=== PATIENT | female | born 1955 | race Hispanic/Latino ===

== ENCOUNTER 2017-12-17 15:15 | Observation (INO) | payer OTHER, SELFPAY ==
--- NOTE | 2017-12-17 16:17 | RAD REPORT ---
EXAM DESCRIPTION: Shani Single View12/17/2017 4:08 pm CLINICAL HISTORY: Chest pain COMPARISON: 2008 FINDINGS: The lungs appear clear of acute infiltrate. The heart is normal size IMPRESSION: No acute abnormalities displayed
[2017-12-17] MEDS ORDERED: ACETAMINOPHEN 500 MG TAB ONE (16:50)
[2017-12-17 16:52] LABS: Absolute Lymphocytes (CBC) 1.9 K/uL (0.7-4.9); Absolute Monocytes 0.5 K/uL (0.1-1.3); Absolute Neutrophil 4.3 K/uL (1.8-8.0); Basophils % 0.6 % (0-1.3); Eosinophils % 0.7 % (0-4.4); Hematocrit 39.2 % (36.0-45.0); Lymphocytes % 27.7 % (15.3-44.8); MCH 32.1 pg (27.0-35.0); MCV 90.8 fL (80-100); MPV 10.1 fL (7.6-11.3); Monocytes % 7.1 % (3.3-12.3); Protime INR 1.03; RBC Red Blood Cell Count 4.31 M/uL (3.86-4.86)
[2017-12-17 17:08] LABS: ALT/SGPT 44 U/L (12-78); AST/SGOT 33 U/L (15-37); Alkaline Phosphatase 66 U/L (45-117); BUN Blood Urea Nitrogen 15 mg/dL (7-18); Bicarbonate 26 mmol/L (21-32); Bilirubin Direct 0.1 mg/dL (0-0.2); Bilirubin Total 0.5 mg/dL (0.2-1.0); Glucose Level 98 mg/dL (74-106); Magnesium 2.1 mg/dL (1.8-2.4); NT PRO-BNP 117 pg/mL (<125); Potassium 3.6 mmol/L (3.5-5.1); Protein, Total 7.5 g/dL (6.4-8.2); Sodium Level 138 mmol/L (136-145); Troponin (Emerg Dept Use Only) < 0.02 ng/mL (0.0-0.045)
--- NOTE | 2017-12-17 17:43 | ER ---
Nurse's Notes [facility] Name: Sun Smith Age: 62 yrs Sex: Female : 1955 Arrival Date: 12/17/2017 Time: 15:17 Bed 14 Private MD: Out, [facility] Diagnosis: Chest pain, unspecified Presentation: 12/17 15:19 Presenting complaint: Patient states: dizziness, shaking and difficulty breathing that ss began 2 weeks ago and has gotten worse over the past 3 days. Transition of care: patient was not received from another setting of care. Onset of symptoms was January 03, 2018. Risk Assessment: Do you want to hurt yourself or someone else? Patient reports no desire to harm self or others. Initial Sepsis Screen: Does the patient meet any 2 criteria? No. Patient's initial sepsis screen is negative. Does the patient have a suspected source of infection? No. Patient's initial sepsis screen is negative. Care prior to arrival: None. 15:19 Method Of Arrival: Ambulatory ss 15:19 Acuity: ROBERT 3 ss Historical: - Allergies: 15:36 No Known Allergies; ss - Home Meds: 15:20 None [Active]; rb1 - PMHx: 15:20 High Cholesterol; rb1 - PSHx: 15:36 partial hysterectomy; ss - Immunization history:: Adult Immunizations up to date. - Social history:: Smoking status: Patient/guardian denies using tobacco. - Ebola Screening: : Patient denies exposure to infectious person Patient denies travel to an Ebola-affected area in the 21 days before illness onset. Screenin:20 Abuse screen: Denies threats or abuse. Nutritional screening: No deficits noted. rb1 Tuberculosis screening: No symptoms or risk factors identified. Fall Risk None identified. Assessment: 15:20 General: Appears in no apparent distress. comfortable, Behavior is calm, cooperative, rb1 Reports Denies fever. Pain: Complains of pain in chest and back of head Pain does not radiate. Pain currently is 4 out of 10 on a pain scale. Pain began 2-3 days ago. Neuro: Level of Consciousness is awake, alert, obeys commands, Oriented to person, place, time, situation. Cardiovascular: Capillary refill < 3 seconds is brisk in bilateral fingers. Respiratory: Airway is patent Respiratory effort is even, unlabored, Respiratory pattern is regular, symmetrical, Pt. stated, "I have pressure in my chest when I take a deep breath.". GI: Reports nausea. : No signs and/or symptoms were reported regarding the genitourinary system. Derm: Skin is pink, warm \\T\\ dry. 15:20 Neuro: Reports dizziness, Feels shaky. Respiratory: Reports shortness of breath pain rb1 with respiration. 16:20 Reassessment: Patient appears in no apparent distress at this time. No changes from rb1 previously documented assessment. 17:19 Reassessment: Patient appears in no apparent distress at this time. Patient and/or rb1 family updated on plan of care and expected duration. Pain level reassessed. Patient is alert, oriented x 3, equal unlabored respirations, skin warm/dry/pink. 18:16 Reassessment: Patient appears in no apparent distress at this time. Pain is 3/10. rb1 19:19 Reassessment: Patient appears in no apparent distress at this time. Patient and/or ak1 family updated on plan of care and expected duration. Pain level reassessed. Patient is alert, oriented x 3, equal unlabored respirations, skin warm/dry/pink. pt and family informed of admission status and room assignment. will continue to monitor. Patient denies pain at this time. Patient states feeling better. Patient states symptoms have improved. Vital Signs: 15:36 BP 166 / 83; Pulse 83; Resp 16; Pulse Ox 97% on R/A; Weight 76.2 kg; Height 5 ft. 7 in. ss (170.18 cm); Pain 4/10; 16:30 BP 157 / 81; Pulse 68; Resp 14; Pulse Ox 98% on R/A; dh3 17:16 BP 147 / 77; Pulse 64; Resp 16; Pulse Ox 99% on R/A; dh3 18:00 BP 153 / 74; Pulse 64; Resp 18; Pulse Ox 98% on R/A; rb1 19:17 BP 158 / 77; Pulse 65; Resp 14; Temp 98.6; Pulse Ox 100% on R/A; Pain 2/10; ak1 15:36 Body Mass Index 26.31 (76.20 kg, 170.18 cm) ED Course: 15:17 Patient arrived in ED. sb2 15:17 Out, of [facility] is Private Physician. sb2 15:20 Patient has correct armband on for positive identification. wire web worker on. Pulse rb1 ox on. NIBP on. Warm blanket given. 15:20 Patient maintains SpO2 saturation greater than 95% on room air. rb1 15:28 Magdi Villagomez PA is PHCP. jr8 15:28 Denver Dangelo MD is Attending Physician. jr8 15:28 Everton Collins MD is Attending Physician. jr8 15:35 Triage completed. ss 15:35 Inserted saline lock: 22 gauge in right antecubital area, using aseptic technique. rb1 Blood collected. 15:36 Arm band placed on right wrist. ss 15:37 Nicci Rodriguez, RN is Primary Nurse. [facility] 15:48 EKG done, by mathematics technician. reviewed by Magdi GUILLORY. 3 16:08 XRAY Chest (1 view) In Process Unspecified. EDMS 17:29 Urine collected: clean catch specimen, clear. 3 17:42 Alonzo Cat MD is Hospitalizing Provider. jr8 19:18 No provider procedures requiring assistance completed. Patient admitted, IV remains in ak1 place. Administered Medications: 16:49 Drug: Tylenol 1000 mg Route: PO; rb1 18:17 Follow up: Response: No adverse reaction; Pain is decreased rb1 Outcome: 17:42 Decision to Hospitalize by Provider. jr8 19:18 Condition: good ak1 19:18 Instructed on the need for admit. 19:54 Admitted to Tele accompanied by tech, via wheelchair, room 219, with chart, Report ak1 called to Britney Salamanca RN 20:02 Patient left the ED. ak1 Signatures: Dispatcher [employer] EDCO Dawna Roman RN RN Magdi Villagomez PA PA jr8 Lucy Junior RN RN ak1 Nicci Rodriguez, RN RN rb1 Alisa Martinez 3 Alta Small 2 Gertrudis Zabala 3
--- NOTE | 2017-12-17 17:43 | EDPHYS ---
Physician Documentation [facility] Name: Sun Smith Age: 62 yrs Sex: Female : 1955 Arrival Date: 12/17/2017 Time: 15:17 Bed 14 Private MD: Out, [facility] ED Physician Everton Collins HPI: 12/17 15:43 This 62 yrs old Female presents to ER via Ambulatory with complaints of Chest jr8 Pain > 30 y/o. 15:43 The patient or guardian reports chest pain that is located primarily in the substernal jr8 area. Onset: acutely, 4 day(s) ago, and became worse and became persistent. The pain radiates to the left arm. Associated signs and symptoms: The patient has no apparent associated signs or symptoms. The chest pain is described as a pressure. Duration: The patient or guardian reports multiple episodes. Modifying factors: The symptoms are alleviated by nothing. the symptoms are aggravated by nothing. Severity of pain: At its worst the pain was moderate in the emergency department the pain has improved. The patient has not experienced similar symptoms in the past. The patient has not recently seen a physician. Historical: - Allergies: 15:36 No Known Allergies; ss - Home Meds: 15:20 None [Active]; rb1 - PMHx: 15:20 High Cholesterol; rb1 - PSHx: 15:36 partial hysterectomy; ss - Immunization history:: Adult Immunizations up to date. - Social history:: Smoking status: Patient/guardian denies using tobacco. - Ebola Screening: : Patient denies exposure to infectious person Patient denies travel to an Ebola-affected area in the 21 days before illness onset. ROS: 15:43 Eyes: Negative for injury, pain, redness, and discharge, ENT: Negative for injury, jr8 pain, and discharge, Neck: Negative for injury, pain, and swelling, Respiratory: Negative for shortness of breath, cough, wheezing, and pleuritic chest pain, Abdomen/GI: Negative for abdominal pain, nausea, vomiting, diarrhea, and constipation, Back: Negative for injury and pain, MS/Extremity: Negative for injury and deformity, Skin: Negative for injury, rash, and discoloration. 15:43 Neuro: Negative for headache, weakness, tingling, and seizure. Positive for numbness to arm and lip 15:43 Cardiovascular: Positive for chest pain, Negative for edema, orthopnea, palpitations, paroxysmal nocturnal dyspnea. Exam: 15:43 Eyes: Pupils equal round and reactive to light, extra-ocular motions intact. Lids and jr8 lashes normal. Conjunctiva and sclera are non-icteric and not injected. Cornea within normal limits. Periorbital areas with no swelling, redness, or edema. ENT: Nares patent. No nasal discharge, no septal abnormalities noted. Tympanic membranes are normal and external auditory canals are clear. Oropharynx with no redness, swelling, or masses, exudates, or evidence of obstruction, uvula midline. Mucous membranes moist. Neck: Trachea midline, no thyromegaly or masses palpated, and no cervical lymphadenopathy. Supple, full range of motion without nuchal rigidity, or vertebral point tenderness. No Meningismus. Cardiovascular: Regular rate and rhythm with a normal S1 and S2. No gallops, murmurs, or rubs. Normal PMI, no JVD. No pulse deficits. Respiratory: Lungs have equal breath sounds bilaterally, clear to auscultation and percussion. No rales, rhonchi or wheezes noted. No increased work of breathing, no retractions or nasal flaring. Abdomen/GI: Soft, non-tender, with normal bowel sounds. No distension or tympany. No guarding or rebound. No evidence of tenderness throughout. Back: No spinal tenderness. No costovertebral tenderness. Full range of motion. Skin: Warm, dry with normal turgor. Normal color with no rashes, no lesions, and no evidence of cellulitis. MS/ Extremity: Pulses equal, no cyanosis. Neurovascular intact. Full, normal range of motion. Neuro: Awake and alert, GCS 15, oriented to person, place, time, and situation. Cranial nerves II-XII grossly intact. Motor strength 5/5 in all extremities. Sensory grossly intact. Cerebellar exam normal. Normal gait. Vital Signs: 15:36 BP 166 / 83; Pulse 83; Resp 16; Pulse Ox 97% on R/A; Weight 76.2 kg; Height 5 ft. 7 in. ss (170.18 cm); Pain 4/10; 16:30 BP 157 / 81; Pulse 68; Resp 14; Pulse Ox 98% on R/A; dh3 17:16 BP 147 / 77; Pulse 64; Resp 16; Pulse Ox 99% on R/A; dh3 18:00 BP 153 / 74; Pulse 64; Resp 18; Pulse Ox 98% on R/A; rb1 19:17 BP 158 / 77; Pulse 65; Resp 14; Temp 98.6; Pulse Ox 100% on R/A; Pain 2/10; ak1 15:36 Body Mass Index 26.31 (76.20 kg, 170.18 cm) ss MDM: 15:28 Patient medically screened. jr8 17:41 HEART Score: History: Moderately Suspicious (1), ECG: Normal (0), Age: > 45 and < 65 jr8 years (1), Risk Factors: 1 or 2 risk factors (1), [Hypercholesterolemia] [Hypertension] Troponin: < or = 1 x Normal Limit (0). The patient was not given aspirin in the Emergency Department. Patient reports taking aspirin within the past 24 hours. Data reviewed: vital signs, nurses notes, lab test result(s), EKG, radiologic studies, plain films, and as a result, I will discharge patient. Data interpreted: Pulse oximetry: on room air is 99 %. Interpretation: normal. Counseling: I had a detailed discussion with the patient and/or guardian regarding: the historical points, exam findings, and any diagnostic results supporting the discharge/admit diagnosis, lab results, radiology results, the need for further work-up and treatment in the hospital. 12/17 15:35 Order name: Basic Metabolic Panel; Complete Time: 17:12/17 15:35 Order name: CBC with Diff; Complete Time: 17:12/17 15:35 Order name: LFT's; Complete Time: 17:12/17 15:35 Order name: Magnesium; Complete Time: 17:12/17 15:35 Order name: NT PRO-BNP; Complete Time: 17:12/17 15:35 Order name: PT-INR; Complete Time: 17:12/17 15:35 Order name: Troponin (emerg Dept Use Only); Complete Time: 17:12/17 15:35 Order name: XRAY Chest (1 view); Complete Time: 16:38 12/17 15:35 Order name: EKG; Complete Time: 15:35 12/17 17:34 Order name: Urine Dipstick--Ancillary (enter results); Complete Time: 19:21 eb 12/17 18:14 Order name: Basic Metabolic Panel [facility] 12/17 18:14 Order name: Echo with Doppler [facility] 12/17 18:14 Order name: Troponin I [facility] 12/17 15:35 Order name: Cardiac monitoring; Complete Time: 16:40 [facility] 12/17 15:35 Order name: EKG - Nurse/Tech; Complete Time: 16:48 [facility] 12/17 15:35 Order name: IV Saline Lock; Complete Time: 16:40 [facility] 12/17 15:35 Order name: Labs collected and sent; Complete Time: 16:40 [facility] 12/17 15:35 Order name: O2 Per Protocol; Complete Time: 16:40 [facility] 12/17 15:35 Order name: O2 Sat Monitoring; Complete Time: 16:40 [facility] 12/17 15:35 Order name: Urine Dipstick-Ancillary (obtain specimen); Complete Time: 17:30 [facility] 12/17 18:14 Order name: CONS Physician Consult [facility] 12/17 18:14 Order name: Heart Healthy [facility] Administered Medications: 16:49 Drug: Tylenol 1000 mg Route: PO; rb1 18:17 Follow up: Response: No adverse reaction; Pain is decreased rb1 Disposition: 12/17/17 17:42 Hospitalization ordered by Alonzo Cat for Observation. Preliminary diagnosis is Chest pain, unspecified. - Bed requested for Telemetry/MedSurg (observation). - Status is Observation. ak1 - Condition is Stable. - Problem is new. - Symptoms have improved. UTI on Admission? No Addendum: 12/22/2017 07:04 Co-signature as Attending Physician, Everton Collins MD. r n Signatures: Dispatcher [employer] [facility] Debra Cheek RN Everton Chowdhury MD MD rn Smirch, Shelby RN RN Magdi Burnette PA PA jr8 Lucy Junior RN RN ak1 Nicci Rodriguez RN RN rb1 Corrections: (The following items were deleted from the chart) 12/17 18:52 17:42 Hospitalization Ordered by Alonzo Cat MD for Observation. Preliminary diagnosis dw is Chest pain, unspecified. Bed requested for Telemetry/MedSurg (observation). Status is Observation. Condition is Stable. Problem is new. Symptoms have improved. UTI on Admission? No. jr8 20:02 18:52 12/17/2017 17:42 Hospitalization Ordered by Alonzo Cat MD for Observation. ak1 Preliminary diagnosis is Chest pain, unspecified. Bed requested for Telemetry/MedSurg (observation). Status is Observation. Condition is Stable. Problem is new. Symptoms have improved. UTI on Admission? No. dw
[2017-12-17] MEDS ORDERED: MORPHINE 4 MG/ML SYR IV PRN (18:10)
[2017-12-17] MEDS ORDERED: ALPRAZOLAM 0.25 MG TABLET PO PRN (18:10)
[2017-12-17] MEDS ORDERED: ZOLPIDEM TARTRATE 5 MG TABLET PO PRN (18:10)
[2017-12-17] MEDS ORDERED: ACETAMINOPHEN 500 MG TAB PO PRN (18:10)
[2017-12-17] MEDS ORDERED: NITROGLYCERIN 0.4 MG/TAB SL PRN (18:23)
[2017-12-17 19:10] LABS: Urine Blood NEGATIVE (NEG); Urine Glucose NEGATIVE (NEG); Urine Protein NEGATIVE (NEG)
[2017-12-17] MEDS ORDERED: ATORVASTATIN 40 MG TAB PO SCH (21:00)
[2017-12-17] MEDS: METOPROLOL TAR 50 MG TAB PO SCH (21:38)
[2017-12-17] MEDS: ENOXAPARIN 40 MG/0.4 ML SQ SCH (21:38)
[2017-12-17 21:56] VITALS: BMI 26.2
--- NOTE | 2017-12-18 05:18 | P.HP ---
Certification for Inpatient Patient admitted to: Observation With expected LOS: <2 Midnights Patient will require the following post-hospital care: None Practitioner: I am a practitioner with admitting privileges, knowledge of patient current condition, hospital course, and medical plan of care. Services: Services provided to patient in accordance with Admission requirements found in Title 42 Section 412.3 of the Code of Federal Regulations Patient History Date of Service: 12/17/17 Reason for admission: Chest pain rule out acute coronary syndrome History of Present Illness: Patient is a 62-year-old female came to the hospital with chest discomfort. Pain was mainly in the sternal region. It radiated down her left arm and up her neck. Patient also had a headache with some paresthesias to the left side of her face. She took an aspirin which was 81 mg. She did not get it her symptoms so she came into the emergency room for brief denies any prior history of cardiac problems. She does have a history of hypertension but denies diabetes. She does take a prescription for cholesterol meds as well. She does not smoke. She does have a family history of cardiac disease in her mother and father. She states that her mother in her 60s with cardiac issues. She has not had any cardiac workup in the past. She will be admitted to the hospital for further workup. Probably get a echocardiogram and a stress test along with a CT of the head to evaluate the headache with her paresthesias to the left side of her face and arm. Allergies No Known Allergies Allergy (Verified 12/17/17 21:42) Home Medications: Calcium Carb/Mag Ox/Zinc Sulf [Fughcvx-Utxkvpdex-Xugs Tablet] 1 tab PO DAILY Cholecalciferol (Vitamin D3) [Vitamin D3] 1 tab PO DAILY 12/17/17 Multivitamin [Multiple Vitamins] 1 tab PO DAILY 12/17/17 - Past Medical/Surgical History Has patient received pneumonia vaccine in the past: Yes Diabetic: No -: High Cholesterol -: HTN -: Hysterectomy - Family History Father Medical History: Liver disease Mother Medical History: Heart disease, Hypertension, Diabetes Sister Medical History: Diabetes Brother Medical History: Hypertension - Social History Smoking Status: Never smoker Alcohol use: No CD- Drugs: No Caffeine use: Yes Place of Residence: Home Review of Systems 10-point ROS is otherwise unremarkable Physical Examination - Vital Signs Temperature: 97.6 F Blood Pressure: 159/71 Pulse: 61 Respirations: 18 Pulse Ox (%): 98 - Physical Exam General: Alert, In no apparent distress, Oriented x3 HEENT: Atraumatic, PERRLA, Mucous membr. moist/pink, EOMI, Sclerae nonicteric Neck: Supple, 2+ carotid pulse no bruit, No LAD, Without JVD or thyroid abnormality Respiratory: Clear to auscultation bilaterally, Normal air movement Cardiovascular: Regular rate/rhythm, Normal S1 S2, No murmurs Gastrointestinal: Normal bowel sounds, Soft and benign, Non-distended, No tenderness, No rebound, No guarding Musculoskeletal: No clubbing, No swelling, No tenderness Integumentary: No rashes Neurological: Normal gait, Normal speech, Normal strength at 5/5 x4 extr, Normal tone, Sensation intact, Cranial nerves 3-12 intact, Normal affect Lymphatics: No axilla or inguinal lymphadenopathy - Studies Laboratory Data (last 24 hrs) 12/17/17 16:35: PT 12.1, INR 1.03 12/17/17 16:35: WBC 6.7, Hgb 13.9, Hct 39.2, Plt Count 175 12/17/17 16:35: Sodium 138, Potassium 3.6, BUN 15, Creatinine 0.70, Glucose 98, Magnesium 2.1, Total Bilirubin 0.5, AST 33, ALT 44, Alkaline Phosphatase 66 Assessment & Plan - Plan Assessment: 1. Chest pain rule out acute coronary syndrome 2. Headache with paresthesias to the left side of her body 3. History of hypertension and dyslipidemia 4. Family history of cardiac disease in the mother and father Plan: 1. Serial troponins and EKG 2. Cardiology consultation 3. Echocardiogram and stress test in the morning 4. Anti-platelet therapy, anti coagulation, beta-yury, statin, and O2 as needed 5. IV morphine for pain 6. Nitro p.r.n. 7. CT of the brain for further evaluation of her paresthesias and headache 8. Lipid profile in the morning 9. GI and DVT prophylaxis Discharge Plan: Home Plan to discharge in: 24 Hours - Advance Directives Does patient have a Living Will: Yes Does patient have a Durable POA for Healthcare: No - Code Status/Comfort Care Code Status Assessed: Yes Code Status: Full Code Critical Care: No Time Spent Managing PTS Care (In Minutes): 50
[2017-12-18 05:30] LABS: Absolute Lymphocytes (CBC) 3.6 K/uL (0.7-4.9); Absolute Monocytes 0.5 K/uL (0.1-1.3); Basophils % 0.9 % (0-1.3); Eosinophils % 1.7 % (0-4.4); MCH 32.3 pg (27.0-35.0); MCV 91.4 fL (80-100); MPV 9.8 fL (7.6-11.3); Monocytes % 7.5 % (3.3-12.3); RBC Red Blood Cell Count 4.26 M/uL (3.86-4.86)
[2017-12-18 08:51] VITALS: BP 133/71; TEMP 98
[2017-12-18] MEDS ORDERED: LISINOPRIL 10 MG TAB PO SCH (09:00)
[2017-12-18] MEDS ORDERED: ASPIRIN EC 81 MG TAB PO SCH (09:00)
[2017-12-18] MEDS: METOPROLOL TAR 50 MG TAB PO SCH (09:00)
[2017-12-18] MEDS: ENOXAPARIN 40 MG/0.4 ML SQ SCH (09:20)
[2017-12-18] MEDS ORDERED: REGADENOSON 0.4 MG/5 ML SYR IV ONE (10:47)
[2017-12-18 10:49] VITALS: O2SAT 99
[2017-12-18 11:19] LABS: BUN Blood Urea Nitrogen 12 mg/dL (7-18); Bicarbonate 28 mmol/L (21-32); Glucose Level 94 mg/dL (74-106); HDL Cholesterol 46 mg/dL (40-60); LDL Cholesterol, Calculated 167 (<130); Potassium 4.3 mmol/L (3.5-5.1); Sodium Level 142 mmol/L (136-145)
--- NOTE | 2017-12-18 12:41 | RAD REPORT ---
EXAM DESCRIPTION: CT - Head Brain Wo Cont - 12/18/2017 12:27 pm CLINICAL HISTORY: Headache and numbness COMPARISON: 2008 TECHNIQUE: Computed axial tomography of the head was obtained. IV contrast was not requested. All CT scans are performed using dose optimization technique as appropriate and may include automated exposure control or mA/KV adjustment according to patient size. FINDINGS: An intracranial bleed is not seen . The ventricles are normal in caliber. No extra-axial fluid collection is noted. Small right thalamic calcification is unchanged Fluid within the sinuses/ mastoids is not seen. IMPRESSION: No acute intracranial abnormality is seen. If patient's symptoms persist MRI of the bra in would be recommended.
--- NOTE | 2017-12-18 13:11 | RAD REPORT ---
EXAM DESCRIPTION: NM - Rest Stress Cardiac Imaging - 12/18/2017 12:26 pm CLINICAL HISTORY: Chest pain COMPARISON: None. TECHNIQUE: The patient was administered 10.9 mCi of Tc 99m Sestamibi prior to resting SPECT imaging of the heart. The patient was then administered 30.4 mCi of Tc 99m Sestamibi following exercise or ph armacologic stress. Multiplanar SPECT images were reviewed. FINDINGS: The end diastolic volume is 87 ml, the end systolic volume is 32 ml, and the ejection frac tion is 63 %. No stress-induced ischemic changes are identifiable. There is minimal diminished activity anterior wa ll near the apex as well is in the inferior wall near the base. These areas are not clearly different between rest and stress imaging. Diaphragm and breast attenuation artifacts are most likely the etio logy. Scarring is felt to be low in likelihood. IMPRESSION: No stress-induced ischemia change. Anterior apical and inferior wall base diminished activity is believed to be attenuation artifact rat her than scarring. Ventricular volumes and ejection fraction are well within normal limits.
--- NOTE | 2017-12-19 12:17 | EKG ---
Test Date: 2017-12-17 Test Time: 15:38:00 Roll Edge Machine Operator: YAIMA MEASUREMENT RESULTS: Intervals: Rate: 75 CO: 174 QRSD: 98 QT: 390 QTc: 435 [place]: P: 55 CO: 174 QRS: 31 T: 39 INTERPRETIVE STATEMENTS: Normal sinus rhythm Normal ECG Compared to ECG 10/06/2007 14:22:31 Sinus bradycardia no longer present Electronically Signed On 12-19-17 12:08:40 CDT by Harlan Graham
--- NOTE | 2017-12-19 13:43 | CON ---
Date of Consultation: 12/18/[address] Cat's service on 12/17/2017, I saw the patient on 12/18/2017. Reason For Consultation: Chest pain. History Of Present Illness: Ms. Smith is a 62-year-old female who has really no significant cardiac history. She has a past medical history of dyslipidemia. Does not take any medications. She does n ot have any allergies. She came in with 4 days' worth of chest pain radiating to her arm, that is sh dae. No nausea, vomiting, diaphoresis, PND, orthopnea, pedal edema, palpitations, or syncope. She w as hypertensive at 170/83 under significant amount of stress. Enzymes were negative. Past Medical History: Positive for dyslipidemia. Medications: None. Review of Systems: Negative. Social History: Negative for tobacco. Family History: Negative for heart disease. Medications: None. Physical Examination: Vital Signs: Stable. Afebrile. HEENT: Negative. Neck: Supple with no bruit, lymphadenopathy, or JVD. Chest: Clear to auscultation and percussion. Cardiac: Revealed a regular rhythm and rate without any murmurs, gallops, or rubs. Abdomen: Benign. Extremities: Revealed no clubbing, cyanosis, or edema. Diagnostic Data: All normal. Impression And Plan: Atypical chest pain in that it lasted for 4 days, nonexertional. No associated symptoms. Normal EKG and enzymes. The patient has hypertension of 170/83, which needs to be treate d. Dyslipidemia. I recommended an echocardiogram and a stress test prior to making any final decisi ons. KLAUDIA/TRISTA Voice ID: [id number] Report ID: [id number]
--- NOTE | 2017-12-19 16:13 | DS ---
Date of Discharge: 12/18/2017 Admitting Diagnoses: 1.Chest pain. 2.Headache with paresthesia. 3.History of hypertension, not on any medications, diet controlled. 4.Dyslipidemia, diet controlled. Discharge Diagnoses: 1.Chest pain. Acute coronary syndrome ruled out. 2.Dyslipidemia. Continue statin. 3.Essential hypertension, on low-dose MARIA G inhibitor. 4.Overweight, body mass index 26. 5.Headache with paresthesias, resolved. Hospital Course: The patient is a 62-year-old female who has hypertension, hyperlipidemia, which is diet controlled. No previous history of heart disease. Had a stress test 7 years ago, which was neg ative. The patient reports some recent stress in her life, which has been ongoing and has intensifie d recently, reports some headache, paresthesias in the left side of her face as well as some chest ti ghtness and pain. The patient was admitted to the hospital for further workup. ACS was ruled out. Her cardiac enzymes were negative x3. However, her lipid panel did show elevated triglycerides, chol esterol and LDL. HDL was normal. She was counseled on using statin. She understands the side effec ts including myopathy, liver dysfunction. She will need repeat lipid panel in 3 months and monitor h er liver function. The patient also was hypertensive. She states that she does not use any medicati ons at home; however, her blood pressure fluctuates. She will be continued on a low-dose MARIA G inhibit or. The patient was also seen by Dr. Graham, Cardiology. Stress test was done, which showed no str ess-induced ischemia. Her EF was 63%. The patient was then cleared for discharge. Her symptoms had resolved. CT scan of the head was also done due to the paresthesias, which did not show any hemorrh age or mass. The patient was then discharged home in stable condition. Activity: As tolerated. Medications: As per medication reconciliation list. Followup: Follow up with primary care physician in 2 to 3 days. Follow up with [facility], Dr. Mike camejo in 2 weeks. Return to ER for worsening condition. Diet: Heart healthy. Physical Examination: General: Awake, alert, oriented x3. No acute distress. CV: S1, S2. No murmurs. Respiratory: Moving air well bilaterally. Abdomen: Soft, nontender, nondistended. Positive bowel sounds. Extremities: No clubbing, cyanosis, edema. Neurologic: Nonfocal. Sensation intact to light touch. SA/MODL Voice ID: [id number] Report ID: [id number]
--- NOTE | 2017-12-21 07:46 | ECHO ---
HEIGHT: 5 ft 7 in WEIGHT: 167 lb 11.2 oz DATE OF STUDY: 12/18/[address]: Alonzo Cat MD 2-DIMENSIONAL: YES M.MODE: YES DOPPLER: YES COLOR FLOW: YES TDS: PORTABLE: DEFINITY: BUBBLE STUDY: DIAGNOSIS: CHEST PAIN CARDIAC HISTORY: CATHERIZATION: NO SURGERY: NO PROSTHETIC VALVE: NO PACEMAKER: NO MEASUREMENTS (cm) DIASTOLIC (NORMALS) SYSTOLIC (NORMALS) IVSd 0.8 (0.6-1.2) LA Diam 3.3 (1.9-4.0) LVEF 71% LVIDd 4.2 (3.5-5.7) LVIDs 22.5 (2.0-3.5) %FS 40% LVPWd 1.0 (0.6-1.2) Ao Diam 2.8 (2.0-3.7) 2 DIMENSIONAL ASSESSMENT: RIGHT ATRIUM: NORMAL LEFT ATRIUM: NORMAL RIGHT VENTRICLE: NORMAL LEFT VENTRICLE: NORMAL TRICUSPID VALVE: NORMAL MITRAL VALVE: NORMAL PULMONIC VALVE: NORMAL AORTIC VALVE: NORMAL PERICARDIAL EFFUSION: NONE AORTIC ROOT: NORMAL LEFT VENTRICULAR WALL MOTION: NORMAL DOPPLER/COLOR FLOW: NORMAL COMMENTS: NORMAL 2-DIMENSIONAL ECHOCARDIOGRAM WITH DOPPLER. NO WALL MOTION ABNORMALITY. NO EFFUSION. TECHNOLOGIST: LUIS MANUEL BIRCH
--- NOTE | 2017-12-21 07:53 | TREADPHA ---
DX: CHEST PAIN Date of Study: 12/18/2017 Ht: 5 7 Wt: 167 lb 11.2 oz Consulting Physician: ANNA CRUZ MEDICATIONS: HISTORY: 62 YEAR OLD FEMALE WITH COMPLAINT OF CHEST PAIN. HISTOYR OF HIGH CHOLESTEROL. PHYSICIAL EXAMINATION: RESTING B.P.: 155/76 RESTING H.R.: 68 RESTING EKG: NORMAL PROTOCOL: LEXISCAN EXERCISE TIME: 3:30 B.P. AT PEAK STRESS: 149/73 IMPRESSION: LEXISCAN INJECTED, CARDIOLITE INJECTED PER PROTOCOL. SEE NUCLEAR MEDICINE REPORT. NO SUPRAVENTRICULAR TACHYCARDIA. NO VENTRICULAR TACHYCARDIA. NO PREMATURE VENTRICULAR COMPLEXES. DENIED CHEST PAIN.
== END 2017-12-18 15:13 | disposition home or self-care (01) ==
LOC: ER 15:15 → ERHOLD 17:50 → 2ND 19:18
PROVIDERS: ADMIT Family Medicine; ATTEND Hospitalist
DX: R07.9 Chest pain, unspecified (principal); E78.5 Hyperlipidemia, unspecified; I10 Essential (primary) hypertension; R51 Headache; R20.2 Paresthesia of skin
CPT/HCPCS: 36415; 70450; 71045; 78452; 80048; 80061; 80076; 81003; 83735; 83880; 84484; 85025; 85610; 93005; 93017; 93306; 99285; A9500; G0378; J1650; J2785